=== PATIENT | female | born 1970 | race Caucasian/White ===

== ENCOUNTER 2018-09-14 20:32 | Emergency (ER) | payer OTHER ==
[~2018-09-14] VITALS: Ht 170.2 cm; Wt 154.2 kg
[2018-09-14 20:45] VITALS: BP_SYST 156
[2018-09-14] MEDS ORDERED: PHENAZOPYRIDINE HCL 100 MG TABLET PO ONE (23:00)
[2018-09-14] MEDS ORDERED: SULFAMETHOXAZOLE/TRIMETHOPR DS 1 TABLET PO ONE (23:00)
[2018-09-14 23:06] VITALS: BP_SYST 156
== END 2018-09-14 23:06 | disposition home or self-care (01) ==
LOC: SED 20:32
DX: N39.0 Urinary tract infection, site not specified (principal); R03.0 Elevated blood-pressure reading, without diagnosis of hypertension
CPT/HCPCS: 81002; 81025; 99283

== ENCOUNTER 2020-01-12 16:06 | Emergency (ER) | payer OTHER ==
[~2020-01-12] VITALS: Ht 170.2 cm; Wt 145.1 kg
[2020-01-12 16:10] VITALS: BP_SYST 161
--- NOTE | 2020-01-12 16:15 | NUR ---
AMBULATED TO BED 7
--- NOTE | 2020-01-12 16:20 | NUR ---
DR. TAYLOR AT BEDSIDE
--- NOTE | 2020-01-12 16:45 | NUR ---
PEREZ TO ASSUME CARE, C/O HEAVY VAGINAL BLEEDING. CALM, ALERT, RESP UNLABORED, SKIN WARM AND DRY. COMMUNICATES CLEARLY, DENIES CP/SOB
[2020-01-12 16:53] LABS: BASOPHILS % (AUTO) 0.6 % (0.0-2.0); EOSINOPHILS # (AUTO) 0.1 K/uL (0.0-0.4); EOSINOPHILS % (AUTO) 0.8 % (0.0-4.0); HEMATOCRIT 37.3 % (36-48); HEMOGLOBIN 12.5 g/dL (12.0-16.0); LYMPHOCYTES # (AUTO) 2.1 K/uL (1.0-5.5); LYMPHOCYTES % (AUTO) 31.2 % (20.5-51.5); MEAN CORPUSCULAR HEMOGLOBIN 31 pg (27-31); MEAN CORPUSCULAR HGB CONC 34 % (32-36); MEAN CORPUSCULAR VOLUME 94 fL (79.0-98.0); MONOCYTES # (AUTO) 0.4 K/uL (0.0-1.0); MONOCYTES % (AUTO) 6.2 % (1.7-9.3); NEUTROPHILS # (AUTO) 4.1 K/uL (1.8-7.7); NEUTROPHILS % (AUTO) 61.2 % (40.0-70.0); PLATELET COUNT (AUTO) 125 K/uL (130-430); RED BLOOD CELL COUNT(AUTO) 3.99 MIL/uL (4.2-6.2); RED CELL DISTRIBUTION WIDTH 13.6 % (9.0-15.0); WHITE BLOOD COUNT (AUTO) 6.8 K/uL (4.8-10.8)
[2020-01-12 17:12] LABS: CALCIUM 8.3 mg/dL (8.4-11.0); CREATININE 0.78 mg/dL (0.55-1.30); POTASSIUM 4.5 mmol/L (3.5-5.1)
[2020-01-12 17:15] LABS: PROTHROMBIN TIME 10.3 SECS (9.5-12.5)
[2020-01-12 17:18] LABS: ALBUMIN 3.3 g/dL (3.4-4.8); TOTAL BILIRUBIN 0.3 mg/dL (0.0-1.0)
[2020-01-12 17:20] LABS: BILIRUBIN,URINE NEGATIVE (NEGATIVE); BLOOD, URINE 3+ (NEGATIVE); CLARITY/URINE HAZY (CLEAR); COLOR,URINE RED (YELLOW); GLUCOSE,URINE NEGATIVE (NEGATIVE); KETONES,URINE NEGATIVE (NEGATIVE); LEUKOCYTE ESTERASE ,URINE NEGATIVE (NEGATIVE); NITRITE, URINE NEGATIVE (NEGATIVE); PROTEIN URINE TRACE (NEGATIVE)
[2020-01-12 17:22] LABS: BACTERIA,URINE MODERATE /HPF (None Seen); MUCUS,URINE None Seen /LPF (None Seen); RBC,URINE >100 /HPF (0-3); WBC,URINE NONE SEEN /HPF (0-3)
[2020-01-12] MEDS ORDERED: LORazepam 1 MG TABLET PO ONE (18:30)
--- NOTE | 2020-01-12 18:35 | NUR ---
Patient given written and verbal discharge instructions and verbalizes understanding. ER MD discussed with patient the results and treatment provided. Patient in stable condition. ID arm band removed. Patient educated on pain management and to follow up with PMD. [facility] for questions provided and answered. Medication side effect fact sheet provided.
[2020-01-12 19:04] VITALS: BP_SYST 159
== END 2020-01-12 19:04 | disposition home or self-care (01) ==
LOC: SED 16:06
DX: D25.9 Leiomyoma of uterus, unspecified (principal); D69.6 Thrombocytopenia, unspecified; N93.8 Other specified abnormal uterine and vaginal bleeding; F41.9 Anxiety disorder, unspecified
CPT/HCPCS: 36415; 76856-TC; 80053; 81000-TC; 84702-TC; 85025; 85610-TC; 85730-TC; 99284

== ENCOUNTER 2023-02-01 12:19 | Emergency (ER) | payer BC, OTHER ==
[~2023-02-01] VITALS: Ht 167.6 cm; Wt 127.0 kg
[2023-02-01 12:20] VITALS: BP_SYST 161; PULSE 102; RESP 20; TEMP 97.8; O2SAT 95
[2023-02-01] MEDS ORDERED: NACL 0.9% 1,000 ML IV ONE ×2 (12:45)
[2023-02-01] MEDS ORDERED: METOCLOPRAMIDE HCL 10 MG/2 ML VIAL IVP ONE (12:45)
[2023-02-01] MEDS ORDERED: DIPHENHYDRAMINE INJ 50 MG/ML VIAL IVP ONE (12:45)
[2023-02-01 13:16] LABS: BILIRUBIN,URINE NEGATIVE (NEGATIVE); BLOOD, URINE NEGATIVE (NEGATIVE); CLARITY/URINE CLEAR (CLEAR); COLOR,URINE YELLOW (YELLOW); GLUCOSE,URINE NEGATIVE (NEGATIVE); KETONES,URINE 1+ (NEGATIVE); LEUKOCYTE ESTERASE ,URINE TRACE (NEGATIVE); NITRITE, URINE POSITIVE (NEGATIVE); PROTEIN URINE NEGATIVE (NEGATIVE)
[2023-02-01 13:21] LABS: BASOPHILS % (AUTO) 0.5 % (0.0-2.0); EOSINOPHILS % (AUTO) 0.1 % (0.0-4.0); HEMATOCRIT 41.2 % (36-48); LYMPHOCYTES % (AUTO) 20.3 % (20.5-51.5); MEAN CORPUSCULAR HEMOGLOBIN 31 pg (27-31); MEAN CORPUSCULAR HGB CONC 34 % (32-36); MEAN CORPUSCULAR VOLUME 91 fL (79.0-98.0); MONOCYTES # (AUTO) 0.2 K/uL (0.0-1.0); MONOCYTES % (AUTO) 4.6 % (1.7-9.3); NEUTROPHILS # (AUTO) 3.6 K/uL (1.8-7.7); NEUTROPHILS % (AUTO) 74.5 % (40.0-70.0); PLATELET COUNT (AUTO) 120 K/uL (130-430); RED BLOOD CELL COUNT(AUTO) 4.52 MIL/uL (4.2-6.2); WHITE BLOOD COUNT (AUTO) 4.9 K/uL (4.8-10.8)
[2023-02-01 13:25] LABS: BACTERIA,URINE MODERATE /HPF (None Seen); MUCUS,URINE 1+ /LPF (None Seen); RBC,URINE 0-3 /HPF (0-3)
[2023-02-01] MEDS ORDERED: cefTRIAXone 1 GM in D5W 50 ML IV ONE (13:30)
[2023-02-01] MEDS ORDERED: KETOROLAC TROMETHAMINE 30 MG VIAL IVP ONE (13:30)
[2023-02-01 13:31] LABS: CALCIUM 9.4 mg/dL (8.4-11.0); CREATININE 0.61 mg/dL (0.55-1.30); POTASSIUM 3.6 mmol/L (3.5-5.1)
[2023-02-01] MEDS ORDERED: TRAM50TA2 PO (13:39)
[2023-02-01] MEDS ORDERED: CIPR500T5 PO (13:39)
[2023-02-01] MEDS ORDERED: ONDA-8 TL (13:39)
[2023-02-01] MEDS ORDERED: IBUP-1969 PO (13:39)
[2023-02-01 13:45] LABS: ALBUMIN 3.8 g/dL (3.4-4.8); TOTAL BILIRUBIN 0.7 mg/dL (0.0-1.0); TOTAL PROTEIN, SERUM 8.5 g/dL (6.4-8.3)
[2023-02-01] MEDS ORDERED: MORPHINE 2 MG/ML INJ. SYRINGE IVP ONE (13:45)
[2023-02-01 14:39] LABS: INFLUENZA TYPE A Negative (NEGATIVE); INFLUENZA TYPE B NEGATIVE (NEGATIVE)
[2023-02-01] MEDS ORDERED: cefTRIAXone 1 GM VIAL ONE (15:01)
[2023-02-01 16:13] VITALS: BP_SYST 147; PULSE 56; RESP 18; TEMP 97.8; O2SAT 97
== END 2023-02-01 16:14 | disposition home or self-care (01) ==
LOC: SED 12:19
DX: N39.0 Urinary tract infection, site not specified (principal); R51.9 Headache, unspecified; R50.9 Fever, unspecified; R11.2 Nausea with vomiting, unspecified; Z79.899 Other long term (current) drug therapy
CPT/HCPCS: 99284; 96365; 96375; 96361; 80053; 81000; 83690; 85025; 87040; 87086; 36415; 83605; 87804 ×2; J0696; J1200; J1885; J2765; J7030